=== PATIENT | female | born 1975 | race Caucasian/White ===

== ENCOUNTER → 2016-03-03 | Outpatient (CLI) | payer OTHER | END | disposition home or self-care (01) | LOC: PUL 10:26 | PROVIDERS: ATTEND Licensed Practical Nurse | DX: R06.02 Shortness of breath (principal) | CPT/HCPCS: 94060; 94726; 94729 ==

== ENCOUNTER 2016-04-26 06:13 | Day surgery (SDC) | payer OTHER ==
--- NOTE | 2016-04-23 02:38 | PREOPHP ---
DATE OF ADMISSION: 04/26/2016 HISTORY OF PRESENT ILLNESS: This is a 40-year-old female, 2, para 2. The patient with a la st period of 03/29/2016. She was referred to me for a fibroid uterus that was bleeding. She was jerez ving heavy periods with clots, with pain, dyspareunia, pelvic pain. She has not been able to take o ral contraceptives due to the side effects. The patient has been afraid also of the IUD and due to her endometrial hyperplasia on the ultrasound, she was advised for a D and C and a hysteroscopy and also endometrial ablation. The patient did not want to go ahead with the ablation and she is underg oing just for the hysteroscopy, D and C for sampling of the endometrium to make sure there is no mal ignancy involved and to observe for submucosal fibroids. ALLERGIES: THE PATIENT IS NOT ALLERGIC TO ANY MEDICATIONS. MEDICATIONS: She is on Motrin. FAMILY HISTORY: Noncontributory. PHYSICAL EXAMINATION: VITAL SIGNS: Stable. Blood pressure is 110/60, pulse is 80, respirations 16. She weighs 145. HEAD AND NECK: Normal. BREASTS: Soft, nontender, no masses. CHEST: Clear. HEART: Normal sinus rhythm. LUNGS: Clear. ABDOMEN: Soft. Uterus is large, palpable over her symphysis. GENITALIA: Negative. Uterus is large with fibroids. EXTREMITIES: Normal. The patient was also offered a Mirena IUD and she also turned down that possi bility due to being afraid of the side effects. DIAGNOSES: Intractable menometrorrhagia and pain -- fibroid uterus. PLAN: She is undergoing a D and C hysteroscopy to further followup and study and to decide what is the next step to try to control her bleeding and pain. The patient has been advised of the possible risks and possible complications of the procedure with her alternatives and options. Written infor mation was provided. She had no more questions and agreed to go ahead with the procedure with full understanding and no more questions. Dictated By: MARCELO RICHARDSON/SHERYL Conf#: [id number] DID#: [id number]
[2016-04-26] VITALS (11 sets, daily range): BP systolic 104–127; BP diastolic 57–66; PULSE 67–94; RESP 10–22; Ht 162.6 cm; Wt 66.2 kg
[~2016-04-26] VITALS: Ht 162.6 cm; Wt 66.2 kg
--- NOTE | 2016-04-26 07:59 | HPN ---
Date/Time of Note Date/Time of Note DATE: 04/26/16 TIME: 07:58 Interval H&P Admission Note Pt. seen H&P reviewed: No system changes MARCELO BABCOCK MD Apr 26, 2016 07:58
[2016-04-26] MEDS ORDERED: LIDOCAINE 1%/EPI (MDV) 20 ML INJ ONE (10:02)
[2016-04-26] MEDS ORDERED: FENTAnyl 50 MCG/ML VIAL ONE (10:15)
[2016-04-26] MEDS ORDERED: LIDOCAINE 2% (SDV) 5 ML INJ ONE (10:54)
[2016-04-26] MEDS ORDERED: PROPOFOL 40 ML ONE (10:54)
[2016-04-26] MEDS ORDERED: ROCURONIUM 50 MG INJ ONE (10:54)
[2016-04-26] MEDS ORDERED: SUCCINYLCHOLINE CHLORIDE 100 MG/5 ML SYG IV ONE (10:54)
[2016-04-26] MEDS ORDERED: CEFAZOLIN 1 GM INJ ONE (10:54)
[2016-04-26] MEDS ORDERED: NEOSTIGMINE 3 MG/3 ML SYRINGE ONE (10:54)
[2016-04-26] MEDS ORDERED: GLYCOPYRROLATE 0.4 MG INJ ONE (10:54)
[2016-04-26] MEDS ORDERED: MEPERIDINE 25 MG INJ IV PRN (11:00)
[2016-04-26] MEDS ORDERED: HYDROmorphONE (0.2 MG/ML) 10ML SYG IV PRN ×3 (11:00)
[2016-04-26] MEDS ORDERED: ONDANSETRON 4 MG INJ IV PRN (11:00)
[2016-04-26] MEDS ORDERED: METOCLOPRAMIDE 10 MG INJ IV PRN (11:00)
[2016-04-26] MEDS ORDERED: DIPHENHYDRAMINE 50 MG INJ IV PRN (11:00)
[2016-04-26] MEDS ORDERED: FENTAnyl 50 MCG/ML VIAL IV PRN ×2 (11:00)
[2016-04-26] MEDS ORDERED: SILVER NITRATE SWAB ONE (11:29)
--- NOTE | 2016-04-26 11:55 | OPPN ---
Date/Time of Note Date/Time of Note DATE: 04/26/16 TIME: 11:52 Operative/Procedure Note Pre-Operative Diagnosis intractable pelvic pain and bleeding Fibroid uterus Post-Operative Diagnosis same Procedure Fractional D&C ENDOMETRIAL THERMAL ABLATION Surgeon: MARCELO BABCOCK MD Anesthesiologist: MARIELOS EGAN Findings FIBROID UTERUS AND ENDOMETRIAL HYPERPLASIA Estimated blood loss: none Specimens ENDOMETRIAL TISSUE Complications: None Anesthesia type: general MARCELO BABCOCK MD Apr 26, 2016 11:55
--- NOTE | 2016-04-26 11:58 | PD.PPDC ---
TRANSCRIPTION COORDINATOR Discharge Instruction Condition Patient Condition: Good Diet Diet: Resume Regular Diet Activity/Restrictions Activity: Normal Activity May Shower Restrictions: No Exercising No Lifting No Driving No Sexual Activity Nothing in the Vagina No Binger No Tampons, douche Follow-up Follow-up with Physician: Week/Weeks Return to clinic for GUILLOTINE TRIMMER Instructions: Fever greater than 101 Chills Worsening abdominal pain Excessive Vaginal Bleeding More than 2 pads per hour Unable to tolerate diet MARCELO BABCOCK MD Apr 26, 2016 11:58
[2016-04-26] MEDS ORDERED: KETOROLAC 30 MG INJ IV STA (11:59)
[2016-04-26] MEDS ORDERED: KETOROLAC 30 MG INJ ONE (12:07)
--- NOTE | 2016-04-26 12:14 | OPR ---
DATE OF OPERATION: 04/26/2016 PROCEDURES: 1. Fractional D and C. 2. Hysteroscopy. 3. Endometrial thermal ablation. PREOPERATIVE DIAGNOSES: 1. Intractable pelvic pain and bleeding. 2. Fibroid uterus. POSTOPERATIVE DIAGNOSES: 1. Intractable pelvic pain and bleeding. 2. Fibroid uterus. SURGEON: Marcelo Bello MD ANESTHESIOLOGIST: Eliot Reid MD ANESTHESIA: General. DESCRIPTION OF PROCEDURE: The patient was given general anesthesia, placed in the lithotomy positio n. The perineal and vaginal area were prepped and draped. Complimentary examination under anesthes ia revealed that there was grade II uterine prolapse. The uterus was with multiple fibroids of abou t the size of 10 cm. The adnexa were nonpalpable. The vaginal speculum was applied. The cervix wa s held with a forceps. The cervix was opened. Endocervical curettage was done. The uterus was giulia nded to 10 cm. The hysteroscope was placed inside, and there were no intracavitary fibroids. There was a lot of tissue that was scraped anteriorly, posteriorly, laterally and in the fundus that was sent for histopathology. The hysteroscope with the ablation machine was inserted, and the media was warmed up to 90 degrees Celsius. Ten minutes of ablation was done to the patient and 2 minutes of cooling down, and the procedure was finished by removing all the instruments. The patient tolerated the procedure well and left the OR awake and stable. Sponge counts and instrument counts were lauri ect. Intravenous antibiotics were given for prophylaxis. Dictated By: MARCELO RICHARDSON/SHERYL Conf#: [id number] DID#: [id number]
[2016-04-26] MEDS ORDERED: KETOROLAC 30 MG INJ IV PRN (18:00)
== END 2016-04-26 17:45 | disposition home or self-care (01) ==
LOC: SDS 06:13
PROVIDERS: ATTEND Obstetrics & Gynecology
DX: D25.9 Leiomyoma of uterus, unspecified (principal); J45.909 Unspecified asthma, uncomplicated
CPT/HCPCS: 58563; 84703; 88305; J0330; J0690; J1170; J1885; J2405; J2710; J2765; J3010; Z7512; Z7610

== ENCOUNTER 2017-01-15 08:56 | Emergency (ER) | payer OTHER ==
[~2017-01-15] VITALS: Ht 160 cm; Wt 70.0 kg
[2017-01-15 09:01] VITALS: Ht 160 cm; Wt 70.0 kg
[2017-01-15] MEDS ORDERED: ONDANSETRON (ODT) 4 MG TAB ODT STA (09:17)
[2017-01-15] MEDS ORDERED: MECLIZINE 12.5 MG TAB PO ONE (09:30)
--- NOTE | 2017-01-15 09:32 | RADRPT ---
PROCEDURE: CT Brain without contrast. CLINICAL INDICATION: Headaches. Neurologic deficit TECHNIQUE: A CT of the brain was performed on multidetector high-resolution CT scanner utilizing a xial sections from the skull base through the vertex without contrast. One or more of the following dose reduction techniques were used: Automated exposure control, Adjustment of the mA and/or kV acc ording to patient size, and/or use of iterative reconstruction technique. DICOM images are available . DOSE: CTDI = 43 mGy and the DLP = 630 mGy-cm. COMPARISON: None available FINDINGS: No acute intracranial hemorrhage, significant mass effect or midline shift. The perez-white different iation is grossly preserved. The ventricles are normal in size for age. No significant opacification of the visualized paranasal sinuses or mastoids. IMPRESSION: No acute intracranial findings. RPTAT: AA .Dheeraj Glover MD, MD Date Time Electronically viewed and signed by .Dheeraj Golver MD, MD on 01/15/2017 09:32 .T/
[2017-01-15] MEDS ORDERED: ONDA4TAB14 PO (09:48)
[2017-01-15] MEDS ORDERED: MECL12.574 PO (09:48)
--- NOTE | 2017-01-15 10:30 | ERD ---
ER Documentation Chief Complaint Chief Complaint right ear itchiness x 1 year worse x 2 weeks, dizziness x 3 wks, sent by md PARDO 41-year-old female presents to the ED complaining of dizziness for the past 3 weeks. Patient states that it increased with head movement and she feels as if she is spinning. Patient states that she was seen by her primary care physician who has referred her here. She does admit to having right ear itchiness for the past year, patient was treated with Debrox solution without much relief. She denies any ear pain, fevers. Admits to having nausea. Denies any other neuro deficits ROS All systems reviewed and are negative except as per history of present illness. Medications Home Meds Active Scripts Meclizine Hcl* (Antivert*) 12.5 Mg Tab, 25 MG PO Q6H Y for DIZZINESS, #20 TAB Prov:RANDY STINSON PA-C 01/15/17 Ondansetron (Ondansetron Odt) 4 Mg Tab.rapdis, 4 MG PO Q6H Y for NAUSEA AND/OR VOMITING, #10 TAB Prov:RANDY STINSON PA-C 01/15/17 Allergies Allergies: Coded Allergies: No Known Allergy (Unverified , 04/25/16) PMhx/Soc History of Surgery: No Anesthesia Reaction: No Hx Neurological Disorder: No Hx Respiratory Disorders: Yes (ASTHMA) Hx Cardiac Disorders: No Hx Psychiatric Problems: No Hx Miscellaneous Medical Probl: No Hx Alcohol Use: No Hx Substance Use: No Hx Tobacco Use: No Physical Exam Vitals Vital Signs Date Time Temp Pulse Resp B/P Pulse Ox O2 Delivery O2 Flow Rate FiO2 01/15/17 09:01 98.0 75 18 132/74 100 Physical Exam GENERAL: well-developed/well-nourished, in no apparent distress, non-toxic appearing HENT: NC/AT, bilateral tympanic membrane is normal with good cone of light, nares patent, oropharynx clear without exudates EYES: Conjunctiva normal, PERRLA, EOMI, no nystagmus noted NECK: Supple, no lymphadenopathy PULM: CTA bilaterally, no rales, rhonchi, or wheezing heard CV: Normal S1S2, RRR, good capillary refill GI: Soft, non-distended, normal bowel sounds, non-tender BACK: No midline tenderness, no masses, No CVAT EXT: No clubbing, cyanosis, or edema NEURO: Alert and orientated to person, place, and time. CN II-IIX intact. Gait and coordination were normal. Hand rehab rn strength were equal and within normal limits SKIN: Intact, normal turgor PSYCH: Normal mood and mentation, patient denied SI Results 24 hrs Current Medications Medications (Trade) Dose Ordered Sig/Jana Route PRN Reason Start Time Stop Time Status Last Admin Dose Admin Meclizine HCl (Antivert) 25 mg ONCE ONCE PO 01/15/17 09:30 01/15/17 09:31 DC 01/15/17 09:25 Ondansetron HCl (Zofran Odt) 4 mg ONCE STAT ODT 01/15/17 09:17 01/15/17 09:18 DC 01/15/17 09:33 Procedures/MDM MDM: 41-year-old female presents to the ER with vertigo. Peripheral. Symptoms were reproduced with movement of head. My other differentials include but not limited to include labyrinthitis, vestibular neuritis, Mnire's disease, acoustic neuroma, otitis media and central causes such as vestibular migraine, brainstem ischemia, and multiple sclerosis. Patient did not have neurological symptoms, headaches, tinnitus or hearing loss. CT of the head was done and did not show any evidence of acute pathology. However, I have given strict precautions to return to the ER if condition is not improving as expected or if condition worsens. In the ED, patient was given Antivert 25mg and Zofran 8mg ODT. She had improvement in symptoms DISPOSITION: hemodynamically stable. I have discussed the pathology of the condition. Prescriptions Hardeep and Zofran have been given. I have discussed to see a primary care physician for follow-up examination and management. Discussed to return to the ER if condition worsens or not improves as expected. Patient expressed that they agreed and understood this plan. Departure Diagnosis: Primary Impression: Vertigo Condition: Stable Patient Instructions: Inner Ear Problems: Causes of Dizziness (Vertigo), Vertigo, Unspecified Additional Instructions: Visite a dudley yolanda solomon para un EXAMEN.Regrese a estas instalaciones si no se mejora rema esperbamos o rema le dijimos. Lee toda la medicina abner y rema se le indic. Regrese a estas instalaciones si no se mejora rema esperbamos o rema le dijimos. Specialist:Usted tiene pollo condicin mdica que requiere que caron a un especialista dentro de los prximos 1-2 [place].POR FAVOR,CON DUDLEY SEGUIMIENTO DE PRIMARIA PHSICIAN refferal. SI USTED NO TIENE UN MDICO GENERAL Y / O USTED NO PUEDE PAGAR ellis a un mdico,los siguientes piedra RECURSOS sido suministrado a usted. ES DUDLEY RESPONSABILIDAD PARA SER VISTOS POR EL ESPECIALISTA: RANDY STINSON PA-C Jan 15, 2017 10:30
== END 2017-01-15 09:59 | disposition home or self-care (01) ==
LOC: FTE 08:56
DX: H81.391 Other peripheral vertigo, right ear (principal); J45.909 Unspecified asthma, uncomplicated
CPT/HCPCS: 70450; Z7502; Z7610